=== PATIENT | male | born 2000 | race African-American/Black ===

== ENCOUNTER 2019-08-28 18:15 | Emergency (ER) | payer SELFPAY ==
--- NOTE | 2019-08-28 19:13 | EDM.PDOC ---
ED HPI GENERAL MEDICAL PROBLEM - General Chief Complaint: Chest Pain Stated Complaint: CHEST PAIN Time Seen by Provider: 08/28/19 18:31 Source of Information: Reports: Patient, RN Notes Reviewed History Limitations: Reports: No Limitations - History of Present Illness INITIAL COMMENTS - FREE TEXT/NARRATIVE: Patient is a 19-year-old male who presents to the ED for the evaluation of chest pain and shortness of breath. Patient noticed that during basketball practice, he developed some left-sided gripping/crushing chest pain, and he states that he did feel some mild shortness of breath with this at this time, he does state however he was practicing pretty hard for basketball. He does think that he felt his heart racing, more so than normal for his exercise routines. He states he has not felt this sort of pain before. Patient does note that he has a history of asthma, does have an inhaler but has not taken this in a while. He denies any fevers or chills, nausea/vomiting/diarrhea, any excessive diaphoresis. Patient states that he has coffee on a daily basis, however he did not have any caffeine today. He does not think that he drank much for water today as well. Patient states that he does not smoke, is not a drug user, does not use alcohol. Patient was unsure if he had any sort of early cardiac history in his family, but he believes that the is some sort of cardiac history, was just unsure of the timing. He has not been told he had any sort of heart conditions as a child. - Related Data Allergies Allergy/AdvReac Type Severity Reaction Status Date / Time No Known Allergies Allergy Verified 08/28/19 18:28 Home Meds: Home Meds . [No Known Home Meds] 08/28/19 [History] ED ROS GENERAL - Review of Systems Review Of Systems: See Below Constitutional: Denies: Fever, Chills Respiratory: Reports: Shortness of Breath. Denies: Wheezing, Cough Cardiovascular: Reports: Chest Pain (Left sided gripping/crushing chest pain), Palpitations (felt heart racing). Denies: Blood Pressure Problem, Lightheadedness GI/Abdominal: Denies: Abdominal Pain, Nausea, Vomiting Neurological: Denies: Dizziness, Headache ED EXAM, GENERAL - Physical Exam Exam: See Below Exam Limited By: No Limitations General Appearance: Alert, WD/WN, No Apparent Distress Eye Exam: Bilateral Eye: EOMI, PERRL Throat/Mouth: Normal Inspection, Normal Lips, Normal Teeth, Normal Gums, Normal Oropharynx, Normal Voice, No Airway Compromise Head: Atraumatic, Normocephalic Respiratory/Chest: No Respiratory Distress, Lungs Clear, No Accessory Muscle Use , Chest Non-Tender, Decreased Breath Sounds (lung sound mildly diminished) Cardiovascular: Normal Peripheral Pulses, Regular Rate, Rhythm, No Edema, No Murmur GI/Abdominal: Normal Bowel Sounds, Soft, Non-Tender, No Distention, No Mass Extremities: Normal Inspection, Normal Capillary Refill Neurological: Alert, Oriented, Normal Cognition, No Motor/Sensory Deficits Psychiatric: Normal Affect, Normal Mood Skin Exam: Warm, Dry, Intact, Normal Color, No Rash EKG INTERPRETATION EKG Date: 08/28/19 Time: 19:14 Rhythm: NSR Rate (Beats/Min): 72 [place]: Normal P-Wave: Present QRS: Normal ST-T: Normal QT: Normal Comparison: NA - No Prior EKG EKG Interpretation Comments: early repolarization pattern, normal EKG. No acute ischemic change noted. Reviewed by myself and Dr. Nolan. Course - Vital Signs Last Recorded V/S: Last Vital Signs Temp 97.5 F 08/28/19 18:26 Pulse 74 08/28/19 18:26 Resp 16 08/28/19 18:26 BP 138/71 08/28/19 18:26 Pulse Ox 98 08/28/19 18:26 - Orders/Labs/Meds Orders: Active Orders 24 hr Category Date Time Status EKG Documentation Completion [RC] STAT Care 08/28/19 19:06 Ordered Chest 2V [CR] Stat Exams 08/28/19 19:04 Ordered Labs: Laboratory Tests 08/28/19 08/28/19 Range/Units 19:20 19:20 WBC 9.24 H (4.23-9.07) K/mm3 RBC 5.50 (4.63-6.08) M/mm3 Hgb 15.3 (13.7-17.5) gm/dl Hct 45.1 (40.1-51.0) % MCV 82.0 (79.0-92.2) fl MCH 27.8 (25.7-32.2) pg MCHC 33.9 (32.2-35.5) g/dl RDW Std Deviation 41.5 (35.1-43.9) fL Plt Count 194 (163-337) K/mm3 MPV 9.5 (9.4-12.3) fl Neut % (Auto) 81.6 H (34.0-67.9) % Lymph % (Auto) 12.9 L (21.8-53.1) % Meagher % (Auto) 4.9 L (5.3-12.2) % Eos % (Auto) 0.2 L (0.8-7.0) Baso % (Auto) 0.2 (0.1-1.2) % Neut # (Auto) 7.54 H (1.78-5.38) K/mm3 Lymph # (Auto) 1.19 L (1.32-3.57) K/mm3 Meagher # (Auto) 0.45 (0.30-0.82) K/mm3 Eos # (Auto) 0.02 L (0.04-0.54) K/mm3 Baso # (Auto) 0.02 (0.01-0.08) K/mm3 Sodium 143 (136-145) mEq/L Potassium 4.6 (3.5-5.1) mEq/L Chloride 105 (98-107) mEq/L Carbon Dioxide 30 (21-32) mEq/L Anion Gap 12.6 (5-15) BUN 15 (7-18) mg/dL Creatinine 1.3 (0.7-1.3) mg/dL Est Cr Clr Drug Dosing 113.28 mL/min Estimated GFR (MDRD) > 60 (>60) mL/min BUN/Creatinine Ratio 11.5 L (14-18) Glucose 90 (74-106) mg/dL Calcium 9.5 (8.5-10.1) mg/dL Total Bilirubin 1.1 H (0.2-1.0) mg/dL AST 22 (15-37) U/L ALT 26 (16-63) U/L Alkaline Phosphatase 86 (46-116) U/L Troponin I 0.027 (0.00-0.056) ng/mL Total Protein 7.7 (6.4-8.2) g/dl Albumin 4.4 (3.4-5.0) g/dl Globulin 3.3 gm/dL Albumin/Globulin Ratio 1.3 (1-2) - Re-Assessments/Exams Free Text/Narrative Re-Assessment/Exam: 08/28/19 19:12 Patient presents to the ED for evaluation of gripping chest pain while at basketball practice today. Did order a chest x-ray, CBC, CMP, troponin and an EKG for initial management. I suspect this to be related to his asthma nature, more exercise-induced asthma, if evaluation is normal, will have him try his inhaler before basketball practice to see if this does not help resolve the feelings. 08/28/19 19:25 EKG is done, and demonstrates no acute ischemic changes, chest x-ray is also done and demonstrates no acute consolidative processes but it does appear mildly hyperinflated to my eye. Official radiology read is pending at this time. This was reviewed with Dr. Nolan as well. He states that there is no sign of acute ischemic change on EKG or anything of concern on the CXR. 08/28/19 20:00 Labs have resulted and CBC and CMP are WNL, trop is 0.027, WNL but is a bump. I did discuss this with Dr. Moon, and he states this may be slightly elevated d/t patient's athletic activity. Pt is pain free at this time. Will discharge home with general recommendations. Departure - Departure Time of Disposition: 19:27 Disposition: Home, Self-Care 01 Condition: Fair Clinical Impression: Atypical chest pain, Mild exercise-induced asthma Instructions: Exercise-Induced Bronchoconstriction, Adult, Nonspecific Chest Pain, [id number] Referrals: PCP,None [Primary Care Provider] - Forms: ED Department Discharge Additional Instructions: You were evaluated in the ER today regarding your left-sided chest pain while at basketball practice today. Your EKG, chest x-ray, and laboratory evaluation were within normal limits. Although your x-ray did not show any sign of a pneumonia or consolidation, it is suggestive of hyperinflation which could very likely be due to your asthma. The symptoms you are experiencing also could be explained by your history of asthma, and you may have developed more of an exercise-induced asthma. Recommend that you try using your albuterol inhaler prior to Basketball practice , to see if this does not help some of your symptoms. Dehydration can also cause an intense type of gripping chest pain/discomfort. Please try to keep well hydrated, and increase your oral fluid intake. Please return to the ER at any time if your symptoms change or worsen. Sepsis Event Note - Evaluation Sepsis Screening Result: No Definite Risk - Focused Exam Vital Signs: Vital Signs Temp Pulse Resp BP Pulse Ox 08/28/19 18:26 97.5 F 74 16 138/71 98 Date Exam was Performed: 08/28/19 Time Exam was Performed: 20:05 - My Orders Last 24 Hours: My Active Orders 08/28/19 19:04 Chest 2V [CR] Stat 08/28/19 19:06 EKG Documentation Completion [RC] STAT - Assessment/Plan Last 24 Hours: My Active Orders 08/28/19 19:04 Chest 2V [CR] Stat 08/28/19 19:06 EKG Documentation Completion [RC] STAT
--- NOTE | 2019-08-29 07:25 | CR ---
Chest: Two views of the chest were obtained. Comparison: No prior chest x-ray. Heart size and mediastinum are normal. Lungs are clear. Bony structures are unremarkable. Impression: 1. Nothing acute is seen on two-view chest x-ray. Diagnostic code #1 This report was dictated in [place] Standard Time
== END 2019-08-28 20:24 | disposition home or self-care (01) ==
LOC: JD.ED 18:15
DX: R07.89 Other chest pain (principal); J45.990 Exercise induced bronchospasm
CPT/HCPCS: 36415; 71046; 71046-26; 80053; 84484; 85025; 93005; 99285-25